=== PATIENT | female | born 1990 | race Caucasian/White ===

== ENCOUNTER 2017-06-17 14:34 | Emergency (ER) | payer SELFPAY ==
[~2017-06-17] VITALS: Ht 160 cm; Wt 69.5 kg
[2017-06-17 15:10] VITALS: BP 115/78
--- NOTE | 2017-06-17 18:09 | NUR ---
CALLED NO ANSWER.[email or web address]
== END 2017-06-17 18:09 | disposition left against medical advice (07) ==
LOC: MED 14:42
DX: Z53.21 Procedure and treatment not carried out due to patient leaving prior to being seen by health care provider (principal)

== ENCOUNTER 2018-12-08 12:04 | Emergency (ER) | payer OTHER ==
[~2018-12-08] VITALS: Ht 157.5 cm; Wt 77.1 kg
[2018-12-08 12:11] VITALS: BP 134/96
--- NOTE | 2018-12-08 12:14 | NUR ---
PT TRIAGED AND SENT TO ER SMITA HERNANDEZ.
--- NOTE | 2018-12-08 12:49 | NUR ---
PT TO ER BED 5
--- NOTE | 2018-12-08 12:55 | NUR ---
PT BIB SELF C/O RASH ON FACE AND NECK SINCE LAST NIGHT. +PRURITIS, ERYTHEMA. DENIES NEW FOODS OR DETERGENTS. DENIES SOB/ CP/FEVERS/CHILLS. RR EVEN AND UNLABORED. ABLE TO SPEAK IN FULL AND COMPLETE SENTENCES. WILL CONTINUE TO MONITOR. ER MD MADE AWARE. SAFETY PRECAUTIONS IMPLEMENTED. AT THE MOMENT.
--- NOTE | 2018-12-08 14:02 | NUR ---
PT. SITTING IN BED, RR EVEN AND UNLABORED. WILL CONTINUE TO MONITOR. VSS.
[2018-12-08 15:42] VITALS: BP 134/96
--- NOTE | 2018-12-08 15:43 | NUR ---
Patient discharged with v/s stable. Written and verbal after care instructions given and explained. Patient alert, oriented and verbalized understanding of instructions. Ambulatory with steady gait. All questions addressed prior to discharge. ID band removed. Patient advised to follow up with PMD. Rx of cortisone cream given. Patient educated on indication of medication including possible reaction and side effects. Opportunity to ask questions provided and answered.
== END 2018-12-08 15:43 | disposition home or self-care (01) ==
LOC: MED 12:04
DX: L30.9 Dermatitis, unspecified (principal)
CPT/HCPCS: 99283

== ENCOUNTER 2020-03-24 07:13 | Emergency (ER) | payer MEDICAID, SELFPAY ==
[~2020-03-24] VITALS: Ht 157.5 cm; Wt 73.5 kg
--- NOTE | 2020-03-24 07:28 | NUR ---
PT AMBULATED TO ER BED 09
[2020-03-24 07:31] VITALS: BP 129/83
--- NOTE | 2020-03-24 07:40 | NUR ---
DR HERNANDEZ AT BEDSIDE EVALUATING PT.
--- NOTE | 2020-03-24 07:41 | NUR ---
C/O LLQ ABDOMINAL PAIN X 2 DAYS, C/O COUGH, CP, BACK PAIN X 3 MONTHS. COVID TEST +. TEMP 98.2, O2 SAT 98%.PT AWAKE, ALERT, AFIBRILE, SCE , FLAT SOFT ABDOMEN MED HX: OVARIAN CYST REMOVAL
[2020-03-24] MEDS ORDERED: IBUPROFEN 400 MG TAB PO ONE (07:45)
[2020-03-24] MEDS ORDERED: ACETAMINOPHEN EXTRA STRENGTH 500 MG TAB PO ONE (07:45)
--- NOTE | 2020-03-24 08:15 | NUR ---
WINNIE MARTIN AT BEDSIDE DOIN EKG.
--- NOTE | 2020-03-24 08:17 | NUR ---
XRAY AT BEDSIDE .
--- NOTE | 2020-03-24 08:45 | NUR ---
dr duron at bedside reevaluating pt.
[2020-03-24 08:50] VITALS: BP 108/80
--- NOTE | 2020-03-24 08:50 | NUR ---
Patient discharged with v/s stable. Written and verbal after care instructions given and explained regarding covid 19. Patient alert, oriented and verbalized understanding of instructions. Ambulatory with steady gait. All questions addressed prior to discharge. ID band removed. Patient advised to follow up with PMD. Rx of promethazine and tessalon given. Patient educated on indication of medication including possible reaction and side effects. Opportunity to ask questions provided and answered.
== END 2020-03-24 08:50 | disposition home or self-care (01) ==
LOC: EEVIPCON 07:13 → MED 07:13
DX: G44.209 Tension-type headache, unspecified, not intractable (principal); Z09 Encounter for follow-up examination after completed treatment for conditions other than malignant neoplasm
CPT/HCPCS: 71045; 81002; 81025; 93005; 99283; Q0092

== ENCOUNTER 2022-08-21 13:28 | Emergency (ER) | payer MEDICAID, OTHER ==
[~2022-08-21] VITALS: Ht 154.9 cm; Wt 65.8 kg
[2022-08-21 13:36] VITALS: BP 118/79
--- NOTE | 2022-08-21 13:43 | NUR ---
PT SWABBED AND WALKED TO LAB.
--- NOTE | 2022-08-21 14:21 | NUR ---
ASHKAN Romero evaluating patient at bedside
[2022-08-21] MEDS ORDERED: IBUPROFEN 600 MG TAB PO ONE (14:30)
--- NOTE | 2022-08-21 14:38 | NUR ---
PO MEDS GIVEN-NADR
--- NOTE | 2022-08-21 15:00 | NUR ---
ASHKAN Romero re-evaluating patient at bedside.
[2022-08-21] MEDS ORDERED: PROM118S5 PO (15:04)
[2022-08-21] MEDS ORDERED: IBUP-2213 PO (15:04)
[2022-08-21] MEDS ORDERED: ACET-10509 PO (15:04)
[2022-08-21 15:07] VITALS: BP 109/72
--- NOTE | 2022-08-21 15:10 | NUR ---
Patient discharged with v/s stable. Written and verbal after care instructions given and explained. Patient alert, oriented and verbalized understanding of instructions. Ambulatory with steady gait. All questions addressed prior to discharge. ID band removed. Patient advised to follow up with PMD. Rx of TYLENOL EXTRA,PROMETHAZINE-DM,IBU given. Patient educated on indication of medication including possible reaction and side effects. Opportunity to ask questions provided and answered. Chart checked and completed. The patient's care was reviewed and supervised by Nancy Nguyen RN.
== END 2022-08-21 15:10 | disposition home or self-care (01) ==
LOC: MED 13:28
DX: J10.1 Influenza due to other identified influenza virus with other respiratory manifestations (principal); Z20.822 Contact with and (suspected) exposure to COVID-19
CPT/HCPCS: 99283

== ENCOUNTER 2024-05-09 13:52 | Emergency (ER) | payer OTHER ==
[~2024-05-09] VITALS: Ht 152.4 cm; Wt 78.5 kg
[~2024-05-09 13:52] MED LIST: ACET-10509 PO; IBUP-2213 PO; PROM118S5 PO
[2024-05-09 14:02] VITALS: BP 106/44; PULSE 74; RESP 19; TEMP 98.3; O2SAT 97
[2024-05-09] MEDS: ACETAMINOPHEN EXTRA STRENGTH 500 MG TAB PO ONE (14:53)
[2024-05-09 15:05] LABS: BASOPHILS % (AUTO) 0.5 % (0.0-2.0); EOSINOPHILS # (AUTO) 0.2 K/uL (0-0.4); EOSINOPHILS % (AUTO) 2.7 % (0.0-4.0); HEMOGLOBIN 12.8 g/dL (12.0-16.0); LYMPHOCYTES # (AUTO) 2.5 K/uL (2.5-16.5); LYMPHOCYTES % (AUTO) 31.3 % (20.5-51.1); MEAN CORPUSCULAR HEMOGLOBIN 28 pg (27-31); MEAN CORPUSCULAR HGB CONC 34 g/dL (33-37); MEAN CORPUSCULAR VOLUME 82.5 fL (80-94); MONOCYTES # (AUTO) 0.5 K/uL (0.8-1.0); MONOCYTES % (AUTO) 6.8 % (1.7-9.3); NEUTROPHILS # (AUTO) 4.7 K/uL (1.8-7.7); NEUTROPHILS % (AUTO) 58.7 % (42.2-75.2); PLATELET COUNT (AUTO) 240 K/uL (140-450); RED BLOOD CELL COUNT(AUTO) 4.61 MIL/uL (4.20-5.40); RED CELL DISTRIBUTION WIDTH 13.2 % (11.6-13.7)
[2024-05-09 15:13] LABS: APPEARANCE,URINE CLEAR (CLEAR); BILIRUBIN,URINE NEGATIVE (NEGATIVE); BLOOD, URINE NEGATIVE (NEGATIVE); COLOR,URINE YELLOW (YELLOW); LEUKOCYTE ESTERASE ,URINE NEGATIVE (NEGATIVE); NITRITE, URINE NEGATIVE (NEGATIVE); PROTEIN,URINE NEGATIVE (NEGATIVE); UGLUCOSE NEGATIVE (NEGATIVE); UROBILINOGEN,URINE 0.2 EU/dL (0.2 - 1)
[2024-05-09 15:18] LABS: ANION GAP 12.8 (8-16); CALCIUM 8.8 mg/dL (8.5-10.1); CARBON DIOXIDE 26.3 mmol/L (21-32); CREATININE 0.5 mg/dL (0.6-1.3); POTASSIUM 4.1 mmol/L (3.5-5.1)
[2024-05-09] MEDS ORDERED: LID5T TP (16:04)
[2024-05-09] MEDS ORDERED: IBUP-1842 PO (16:04)
[2024-05-09] MEDS ORDERED: ACET-10509 PO (16:04)
== END 2024-05-09 16:15 | disposition home or self-care (01) ==
LOC: MED 13:52
DX: R07.89 Other chest pain (principal); R09.1 Pleurisy; Z79.899 Other long term (current) drug therapy
CPT/HCPCS: 36415; 71111; 80048; 81003; 81025; 84484; 85025; 93005; 99285